=== PATIENT | female | born 1960 | race Caucasian/White ===

== ENCOUNTER 2016-11-05 17:16 | Emergency (ER) | payer BC ==
[~2016-11-05] VITALS: Ht 167.6 cm; Wt 113.8 kg
[~2016-11-05 17:16] MED LIST: PHEN15TA2 PO; PHEN50TA4 PO; TOPI-33 PO
[2016-11-05] MEDS ORDERED: ASPIRIN 81 MG TABLET CHEW PO ONE (19:00)
[2016-11-05 19:09] LABS: BLOOD UREA NITROGEN 20 mg/dL (7-18)
[2016-11-05 19:13] LABS: IS PT STATUS REG ER OR PRE ER? YES
[2016-11-05] MEDS ORDERED: ATOR20TA PO (21:01)
[2016-11-05 21:54] VITALS: BP 143/89
== END 2016-11-05 21:56 | disposition home or self-care (01) ==
LOC: ED 21:46
DX: R07.2 Precordial pain (principal); N39.0 Urinary tract infection, site not specified
CPT/HCPCS: 36415; 71020; 80048; 81001; 82040; 84484; 85025; 87077; 87086; 87186; 93005; 99285

== ENCOUNTER 2016-11-22 12:09 | Emergency (ER) | payer BC, OTHER ==
[~2016-11-22] VITALS: Ht 165.1 cm; Wt 117.7 kg
[~2016-11-22 12:09] MED LIST changes: +ATOR20TA PO
[2016-11-22] MEDS ORDERED: SODIUM CHLORIDE FLUSH 10ML SYR IVF ONE (13:00)
[2016-11-22] MEDS ORDERED: LORazepam 2 MG/ML, 1ML IVPush ONE (13:00)
[2016-11-22] MEDS ORDERED: SODIUM CHLORIDE 0.9% 1,000ML IVBOLUS ONE (13:00)
[2016-11-22] MEDS ORDERED: LORazepam 2 MG/ML, 1ML ONE (13:05)
[2016-11-22 13:32] LABS: ASPARTATE AMINO TRANSFERASE 13 U/L (15-37); BLOOD UREA NITROGEN 14 mg/dL (7-18)
[2016-11-22 15:24] VITALS: BP 141/72
== END 2016-11-22 15:27 | disposition home or self-care (01) ==
LOC: ED 15:20
DX: G40.909 Epilepsy, unspecified, not intractable, without status epilepticus (principal); R25.1 Tremor, unspecified
CPT/HCPCS: 36415; 71010; 80053; 80184; 80185; 80201; 81003; 82140; 85025; 93005; 96361; 96374; 99285; J2060; J7030